=== PATIENT | male | born 1980 | race Caucasian/White ===

== ENCOUNTER 2018-04-15 08:19 | Emergency (ER) | payer BC ==
[2018-04-15 08:36] VITALS: BP 137/86
[2018-04-15] MEDS ORDERED: Tetan/Diph/Pertus SYR(Tdap)* 0.5 ML SYR(BOOSTRIX) use SYR IM ONE (08:45)
[2018-04-15] MEDS ORDERED: Lidocaine 1% MPF* 2 ML VIAL INJ ONE (09:55)
[2018-04-15] MEDS ORDERED: Lidocaine 1%* 5 ML VIAL INJ ONE (09:59)
--- NOTE | 2018-04-15 10:26 | UC ---
Laceration HPI - HPI Summary HPI Summary: Pt presents with c/o LACERATION to right medial aspect of knee. - History Of Current Complaint Chief Complaint: UCLaceration Stated Complaint: RT KNEE LAC Time Seen by Provider: 04/15/18 09:51 Hx Obtained From: Patient Laceration Location: Knee Mechanism Of Injury: Sharp Trauma Onset/Duration: Sudden Onset, Still Present Severity: Mild Pain Intensity: 2 Aggravating Factors: Position, Movement Related History: Dominant Hand Right - Allergies/Home Medications Allergies/Adverse Reactions: Allergies Allergy/AdvReac Type Severity Reaction Status Date / Time No Known Allergies Allergy Verified 04/15/18 08:36 Home Medications: Home Medications Atorvastatin* 20 mg PO DAILY 04/15/18 [History Confirmed 04/15/18] PMH/Surg Hx/FS Hx/Imm Hx Previously Healthy: Yes - Surgical History Surgical History: Yes Surgery Procedure, Year, and Place: wisdom teeth - Family History Known Family History: Positive: Cardiac Disease - Social History Occupation: Employed Full-time Lives: With Family Alcohol Use: Occasionally Substance Use Type: None Smoking Status (MU): Never Smoked Tobacco Have You Smoked in the Last Year: No - Immunization History Most Recent Tetanus Shot: does not recall - most likely more than 10 years Review of Systems All Other Systems Reviewed And Are Negative: Yes Constitutional: Positive: Negative Skin: Positive: Other - laceration Eyes: Positive: Negative ENT: Positive: Negative Respiratory: Positive: Negative Cardiovascular: Positive: Negative Gastrointestinal: Positive: Negative Genitourinary: Positive: Negative Motor: Positive: Negative Neurovascular: Positive: Negative Musculoskeletal: Positive: Myalgia Neurological: Positive: Negative Psychological: Positive: Negative Is Patient Immunocompromised?: No Physical Exam Triage Information Reviewed: Yes Appearance: Well-Appearing Vital Signs: Initial Vital Signs Temp 98 F 04/15/18 08:31 Pulse 70 04/15/18 08:31 Resp 18 04/15/18 08:31 BP 137/86 04/15/18 08:31 Pulse Ox 98 04/15/18 08:31 Vital Signs Reviewed: Yes Eye Exam: Normal ENT Exam: Normal Dental Exam: Normal Neck exam: Normal Respiratory Exam: Normal Respiratory: Positive: No respiratory distress Musculoskeletal Exam: Normal Musculoskeletal: Positive: ROM Intact Neurological Exam: Normal Psychological Exam: Normal Skin Exam: Other - laceration right medial knee Laceration Repair - Laceration Repair 1 Description: Linear Laceration Size After Repair: Length (cm) - 1, Width (mm) - 3, Depth (mm) - 2 Modified For Repair: No Type Injection: Local Anesthesia Used: 1.0% Lido Irrigation With Pressure Irrigation Device: Yes Closure Material: Sutures Closure Method: Single Layer Suture Of: Skin Suture Type: Prolene - three simple interupted sutures of 4-0 prolene placed Laceration Course/Dx - Differential Dx - Laceration/Wound Differental Diagnoses: Laceration - Diagnosis Provider Diagnosis: Laceration of right knee without complication Discharge - Sign-Out/Discharge Documenting (check all that apply): Patient Departure All imaging exams completed and their final reports reviewed: No Studies - Discharge Plan Condition: Stable Disposition: HOME Prescriptions: Cephalexin CAP* [Keflex 500 CAP*] 500 mg PO Q12H #10 cap Patient Education Materials: Care For Your Stitches (DC), Laceration (ED) Referrals: [facility] [Outside] - If Needed No Primary Care Phys,NOPCP [Primary Care Provider] - Additional Instructions: PLEASE RETURN TO HAVE YOUR SUTURES REMOVED IN 8-10 DAYS. PLEASE WATCH FOR SIGNS AND SYMPTOMS OF INFECTION, INCLUDING BUT NOT LIMITED TO REDNESS, PURULENT DRAINAGE, FEVER OR RED STREAKING. - Billing Disposition and Condition Condition: STABLE Disposition: Home
== END 2018-04-15 10:37 | disposition home or self-care (01) ==
LOC: UCEAST 08:19
DX: S81.011A Laceration without foreign body, right knee, initial encounter (principal); X58.XXXA Exposure to other specified factors, initial encounter; Y92.9 Unspecified place or not applicable
CPT/HCPCS: 12001; 90715; 99202; G0463